=== PATIENT | male | born 1975 | race Two or more races ===

== ENCOUNTER → 2024-12-10 | Outpatient (CLI) | payer OTHER, SELFPAY ==
--- NOTE | 2024-12-10 13:13 | XR_ITS ---
Examination: Foot, left, 3 views Technique: AP, oblique, lateral views foot, 3 views Date and time of exam: December,, 1357 hours INDICATIONS: Left heel pain beginning 3 years ago. FINDINGS: Mild narrowing first metatarsophalangeal joint Minimal bunion deformity No fracture or dislocation No plantar or posterior bony calcaneal spurs IMPRESSION: No plantar posterior bony calcaneal spurs
--- NOTE | 2024-12-10 13:13 | XR_ITS ---
EXAMINATION: Ankle, left 3 views. Technique: Ankle AP, oblique, lateral 3 views Date and time of exam: December,, 1357 hours INDICATIONS: Left heel pain beginning 3 years ago. FINDINGS: Normal bone density. No fracture or dislocation. No plantar or posterior bony calcaneal spurs. IMPRESSION: Negative examination
== END | disposition home or self-care (01) ==
LOC: CDIM 12:36
PROVIDERS: PCP Nurse Practitioner Family; Referring Provider Nurse Practitioner Family; Visit Provider Nurse Practitioner Family
DX: M79.672 Pain in left foot (principal); R22.42 Localized swelling, mass and lump, left lower limb
CPT/HCPCS: 73610; 73630